=== PATIENT | female | born 1985 | race Caucasian/White ===

== ENCOUNTER 2020-07-11 13:48 | Emergency (ER) | payer MEDICARE, OTHER, SELFPAY ==
[2020-07-11 13:49] VITALS: BP 141/74; PULSE 125; RESP 20; TEMP 36.6; O2SAT 99; BMI 48.7
--- NOTE | 2020-07-11 13:51 | [facility].EDGENADL ---
ED Disposition Clinical Impression: Adnexal cyst Disposition: Home, Self-Care Condition on Discharge: Good Additional Instructions: Call Dr. Harrington on Tuesday. Prescriptions: Oxycodone HCl/Acetaminophen [Percocet 5/325mg tablet] 1 tab PO Q6H PRN #12 tab PRN Reason: Moderate Pain Referrals: Emily Lane [Primary Care Provider] - 3 days Time of Disposition: 16:15 - Critical Care Critical Care Time: No Attestation: On , the high probability of a clinically significant, sudden or life threatening deterioration of the following system(s) required my full and direct attention, intervention and personal management. The time I documented below is in addition to time spent performing reported procedures but includes the following listed in this critical care notation. Medical Decision Making - Marvin Inquiry Pt receiving controlled substance: Yes Marvin was queried for this patient: Yes Reference #:: [id number] Risks and benefits of using a controlled substance: were discussed with pt by me Vital Signs: 07/11/20 13:49 Temperature 97.8 F Temperature Source Oral Pulse Rate [Left Radial] 125 H Respiratory Rate 20 Blood Pressure [Right Arm] 141/74 H Blood Pressure Mean [Right Arm] 96 Blood Pressure Source [Right Arm] Automatic Cuff Blood Pressure Position [Right Arm] Sitting 02 Sat by Pulse Oximetry 99 Oxygen Delivery Method Room Air - Lab Data Lab results reviewed: Yes: I reviewed the patient's lab results. Lab Results 07/11/20 14:13: WBC 13.7 H, RBC 4.67, Hgb 12.8, Hct 40.2, MCV 85.9, MCH 27.4, MCHC 31.9, RDW 14.3, Plt Count 355, MPV 7.7, Neut % (Auto) 82.2 H, Lymph % (Auto) 11.7, Dent % (Auto) 3.9, Eos % (Auto) 1.7, Baso % (Auto) 0.5, Neut # (Auto) 11.2 H, Lymph # (Auto) 1.6, Dent # (Auto) 0.5, Eos # (Auto) 0.2, Baso # (Auto) 0.1 07/11/20 14:13: Sodium 136, Potassium 3.7, Chloride 98, Carbon Dioxide 28, Anion Gap 13.7, BUN 9, Creatinine 0.70, Estimated Creat Clear 118, Estimated GFR 96, Est GFR ( Amer) 116, Glucose 134 H, Calcium 9.7 Result diagrams: 07/11/20 14:13 07/11/20 14:13 Orders (Tests/Meds): ED MEDICATIONS Generic Name Dose Route Start Last Admin Trade Name Freq PRN Reason Stop Dose Admin Sodium Chloride 10 ml 07/11/20 14:57 07/11/20 14:58 Sodium Chloride 0.9% 10ml Syr (Rad Only) IV 08/10/20 14:56 10 ml NEEDED PRN Administration Maintain IV Site Discontinued Medications Generic Name Dose Route Start Last Admin Trade Name Freq PRN Reason Stop Dose Admin Iopamidol 75 ml 07/11/20 14:57 07/11/20 14:58 Iopamidol-370 (76%);100ml Bottle IV 07/11/20 14:58 75 ml ONCE ONE Administration Morphine Sulfate 2 mg 07/11/20 15:44 07/11/20 15:49 Morphine 2mg/Ml Syringe IV 07/11/20 15:45 2 mg ONCE ONE Administration Ondansetron HCl 4 mg 07/11/20 14:04 07/11/20 14:18 Ondansetron 4mg/2ml Vial IV 07/11/20 14:05 4 mg ONCE ONE Administration ORDERS Category Date Time Status CT abdomen pelvis w con Stat Cat Scan 07/11/20 14:03 Taken - CT Data CT Scan: Pelvis Time Received: 16:[address] Reviewed: Yes: I have reviewed the patient's CT results, I discussed the CT results w/the radiologist, I have viewed the radiologist's interpretation Preliminary Findings: Abnormal Findings Narrative: Left-sided adnexal fluid and cyst - ECG Data Tracing #1 I reviewed this ECG and interpreted as documented below: Left-sided adnexal cyst and fluid Medical Decision Narrative: 35yo F evaluated for postoperative pain and bleeding. Discussed with the patient she would require CT of the abdomen and pelvis for further evaluation. Labs been collected. CT has been ordered. Patient is been provided Zofran for her nausea. Patient CT scan was reviewed independently by me. Seems to have a 600 x 5 cm x 5 cm adnexal cyst. Case was discussed with radiologist. test was obtained. Patient reports she has not had intercourse recently.
--- NOTE | 2020-07-11 14:03 | CT_ITS ---
PROCEDURE: CT ABDOMEN PELVIS W CON CLINICAL INDICATION: pelvic pain, uterine ablation procedure done 07/09/2020 complaining of heavy bleeding and cramping COMPARISON: CT ABDPELW/O CT ABD PELVIS W/O CONTRAST from 12/29/2013 TECHNIQUE: IV Contrast: 75ML OPTIRAY 350 Oral Contrast none given Axial images obtained with sagittal and coronal reformats. All CT scans at the facility use one or more dose reduction, viz: automated exposure control, ma/kV adjustment per patient size (including targeted exams where dose is matched to indication, i.e. head), or iterative reconstruction technique. FINDINGS: Lower thorax: The lower lung menendez are clear of infiltrate, there is a small calcified granuloma right base. ABDOMEN: Liver: Diffuse hypodensity consistent with fatty infiltration, no focal lesions seen. Gallbladder: Post cholecystectomy Pancreas: No masses or peripancreatic fluid collections. Spleen: unremarkable Adrenals: unremarkable Kidneys/ureters: The kidneys are normal in size and show symmetrical function both appearing normal. ABDOMEN & PELVIS: Stomach bowel: The stomach is moderately distended with ingested food particles and fluid. The duodenal sweep and small bowel appear grossly normal. There is a moderate amount stool seen throughout the colon. Peritoneum: No abnormal fluid collections. No obvious inflammatory changes. No free air. There is a tiny umbilical hernia containing fat only. Lymph nodes: No enlarged lymph nodes apparent. Vasculature: No evidence of abdominal aortic aneurysm. No retroperitoneal hemorrhage evident. Bones: No acute fracture PELVIS: Reproductive: The uterus is upper limits of normal in size. The endometrium is somewhat thickened certainly consistent with the recent procedure measuring 1.8 cm. There is a curious left adnexal mass medially abutting the left superior border of the uterus measuring 5.8 x 5.2 x 5.1 cm with irregular densities within suggesting possibly an organizing hematoma. There is a focal area of high density probably representing a calcification but too small to definite accurately measure CT number. I would doubt active bleeding. Bladder: The urinary bladder is partially decompressed, there is a small amount free fluid in the cul-de-sac likely physiologic. Appendix: Not definitely visualized but no pericecal inflammatory changes seen. IMPRESSION: Somewhat thickened endometrium following recent ablation procedure, left adnexal mass immediately abutting the left superior lateral border of the uterus with possible organizing hematoma within. Moderately prominent diffuse hepatic steatosis seen. Dictated by: Dr. John Reid MD 07/12/2020 08:26 Dr. John Reid MD in [facility] 07/12/2020 08:26
[2020-07-11 14:26] LABS: Chloride 98 mmol/L (98-107); Potassium 3.7 mmoL/L (3.5-5.1); Sodium 136 mmol/L (136-145)
[2020-07-11 14:29] LABS: Anion Gap 13.7 mEq/L (5-15); Blood Urea Nitrogen 9 mg/dl (7-17); Carbon Dioxide 28 mmol/L (22.0-30.0); Creatinine Clearance Estimated 118 mL/min (50-200); Estimated Glomerular Filt Rate 96 ml/min (>60); GFR (African American) 116 ML/MIN (>60)
[2020-07-11 14:30] LABS: Calcium 9.7 mg/dl (8.4-10.2); Glucose 134 mg/dl (74-100)
[2020-07-11 14:35] LABS: Basophils # 0.1 K/mm3 (0-0.2); Basophils % 0.5 % (0.1-2.0); Eosinophils # 0.2 K/mm3 (0.0-0.4); Eosinophils % 1.7 % (0.1-12.0); Hematocrit 40.2 % (37.0-47.0); Hemoglobin 12.8 g/dL (12.2-16.2); Lymphocytes # 1.6 K/mm3 (0.7-4.5); Lymphocytes % 11.7 % (10-50); Mean Corpuscular HGB Conc 31.9 g/dL (31.8-35.4); Mean Corpuscular Hemoglobin 27.4 pg (27.0-31.2); Mean Corpuscular Volume 85.9 fl (81-99); Mean Platelet Volume 7.7 fl (7.4-10.4); Monocytes # 0.5 K/mm3 (0.1-1.0); Monocytes % 3.9 % (1.7-9.3); Neutrophils # 11.2 K/mm3 (1.8-7.8); Neutrophils % 82.2 % (37.0-80.0); Platelet Count 355 K/mm3 (142-424); Red Blood Count 4.67 M/mm3 (4.20-5.40); Red Cell Distribution Width 14.3 % (11.5-17.5); White Blood Count 13.7 K/mm3 (4.8-10.8)
--- NOTE | 2020-07-11 15:34 | PC.NURSE ---
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
--- NOTE | 2020-07-11 15:38 | PC.NURSE ---
Dr. Gonzáles speaking with Dr. Harrington.
--- NOTE | 2020-07-11 15:39 | PC.NURSE ---
Dr Gonzáles speaking with dr louis at this time
--- NOTE | 2020-07-11 16:22 | PC.NURSE ---
Pt narcotic prescription printed by myself for . MD Gonzáles chart would not let him print this narcotic prescription.
[2020-07-11 16:38] LABS: Microscopic, Urine URINE MICROSCOPIC (MICROSCOPIC)
[2020-07-11 16:39] LABS: Appearance,Urine CLEAR (Clear); Bilirubin,Urine Negative (Negative); Blood, Urine 3+ (Negative); Color,Urine YELLOW (Yellow); Glucose,Urine (UA) Negative (Negative); Ketones,Urine Negative (Negative); Leukocyte Esterase,Urine Negative (Negative); Nitrate,Urine Negative (Negative); PH,Urine 5.5 (5.0-8.5); Protein,Urine Negative (Negative); Specific Gravity, Urine <= 1.005 (1.005-1.030); Urobilinogen,Urine 0.2 EU/dl (0.2)
[2020-07-11 16:43] LABS: Urine Pregnancy, HCG Qual. Negative (Negative)
[2020-07-11 16:44] LABS: RBC,Urine 20-50 #/hpf (0-3)
[2020-07-11 16:58] VITALS: BP 156/95; PULSE 102; RESP 20; TEMP 36.6; O2SAT 98
== END 2020-07-11 17:00 | disposition home or self-care (01) ==
PROVIDERS: Emergency Provider Family Medicine; PCP Family Medicine
DX: G89.18 Other acute postprocedural pain (principal); N94.9 Unspecified condition associated with female genital organs and menstrual cycle; I10 Essential (primary) hypertension
CPT/HCPCS: 74177; 80048; 81001; 81025; 85025; 96374; 96375; 99282; J2405; Q9967